=== PATIENT | male | born 2000 | race American Indian/Alaskan Native ===

== ENCOUNTER 2021-03-21 06:24 | Emergency (ER) | payer SELFPAY ==
[2021-03-21 06:38] VITALS: BP 105/60
[2021-03-21 10:20] LABS: Bilirubin,Urine NEG (Negative); Blood,Urine NEG (Negative); Color,Urine Amber (Yellow); Mucus,Urine 3+ /HPF
== END 2021-03-21 06:40 | disposition left against medical advice (07) ==
LOC: ED 06:24
DX: R10.9 Unspecified abdominal pain (principal); Z53.21 Procedure and treatment not carried out due to patient leaving prior to being seen by health care provider
CPT/HCPCS: 81001